=== PATIENT | male | born 1975 | race Caucasian/White ===

== ENCOUNTER 2017-12-05 10:35 | Emergency (ER) | payer SELFPAY ==
--- NOTE | 2017-12-05 10:46 | UC ---
Laceration HPI - HPI Summary HPI Summary: 42 yo WM presents with laceration to right index finger pad. 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 He applied a bandage and came to urgent care. Last tetanus was 2 or 3 years ago he says. - History Of Current Complaint Stated Complaint: FINGER LAC Time Seen by Provider: 12/05/17 10:46 Hx Obtained From: Patient Laceration Location: Finger Mechanism Of Injury: Sharp Trauma Onset/Duration: Sudden Onset Severity: Mild Pain Intensity: 2 Pain Scale Used: 0-10 Numeric - Allergies/Home Medications Allergies/Adverse Reactions: Allergies Allergy/AdvReac Type Severity Reaction Status Date / Time NSAIDS (Non-Steroidal AdvReac Mild Rash Verified 12/05/17 10:55 Anti-Inflamma horses Allergy Severe sob, Uncoded 06/07/13 19:53 angioedema PMH/Surg Hx/FS Hx/Imm Hx Previously Healthy: Yes Respiratory History: Asthma - Surgical History Surgical History: Yes Surgery Procedure, Year, and Place: Nasal polyp. appendectomy - Family History Known Family History: Negative: Cardiac Disease, Hypertension - Social History Occupation: Employed Full-time Lives: With Family Alcohol Use: Weekly Alcohol Amount: liquor Substance Use Type: None Smoking Status (MU): Current Some Day Smoker Type: Cigars Amount Used/How Often: min. x 4 years Have You Smoked in the Last Year: Yes Review of Systems Constitutional: Negative Skin: Other - Laceration right index finger pad Respiratory: Negative Cardiovascular: Negative Neurovascular: Negative Musculoskeletal: Negative Neurological: Negative Psychological: Negative All Other Systems Reviewed And Are Negative: Yes Physical Exam - Summary Physical Exam Summary: GENERAL: NAD. WDWN. No pain distress. SKIN: 5mm superficial linear laceration to right index finger pad. Well approximated. Bleeding stopped with direct pressure. No tendon involvement or subcutaneous tissue exposure. NECK: Supple. Nontender. No lymphadenopathy. CHEST: CTAB. No r/r/w. Breathing comfortably and in no distress. CV: RRR. Without m/r/g. Brisk cap refill. MSK: Right finger Strength 5/5. FROM. No edema NEURO: Alert. Sensations intact PSYCH: Age appropriate behavior. Triage Information Reviewed: Yes Laceration Repair - Laceration Repair 1 Description: Linear Laceration Size After Repair: Length (cm) - 0.5 Modified For Repair: No Cleansing Completed Via Routine Prep: Yes Closure Material: Skin Adhesive Laceration Course/Dx - Course/Dx Course Of Treatment: Wound was irrigated with 50mL NS. Closed with dermabond and telfa dressing placed. - Differential Dx - Laceration/Wound Provider Diagnoses: Laceration 5mm right index finger pad Discharge - Sign-Out/Discharge Documenting (check all that apply): Discharge - Discharge Plan Condition: Stable Disposition: HOME Patient Education Materials: Laceration (ED), Skin Adhesive Care (ED) Referrals: Caroline Ibrahim MD [Primary Care Provider] - Additional Instructions: If you develop a fever, shortness of breath, chest pain, new or worsening symptoms - please call your PCP or go to the ED. Your blood pressure was high at todays visit. Please see your primary provider within 4 weeks for recheck and re-evaluation. - Billing Disposition and Condition Condition: STABLE Disposition: HOME
[2017-12-05 10:55] VITALS: BP 139/83
== END 2017-12-05 11:11 | disposition home or self-care (01) ==
LOC: UCEAST 10:35
DX: S61.210A Laceration without foreign body of right index finger without damage to nail, initial encounter (principal); W45.8XXA Other foreign body or object entering through skin, initial encounter; Y93.9 Activity, unspecified; Y92.9 Unspecified place or not applicable; J45.909 Unspecified asthma, uncomplicated; Z88.6 Allergy status to analgesic agent; Z72.0 Tobacco use
CPT/HCPCS: 12001; 99211; G0463

== ENCOUNTER 2019-08-06 12:09 | Emergency (ER) | payer SELFPAY ==
[2019-08-06 13:01] VITALS: BP 119/79
--- NOTE | 2019-08-06 13:22 | UC ---
Laceration HPI - HPI Summary HPI Summary: 44 yo male presents with right thumb laceration. He tells me that just [employer] he was using a metal circuit board printer and it slipped and he sustained a laceration to his right thumb. Bandaged and came to . He states he is UTD on tetanus. - History Of Current Complaint Chief Complaint: UCLaceration Stated Complaint: THUMB INJURY AT WORK Time Seen by Provider: 08/06/19 13:21 Laceration Location: Finger Mechanism Of Injury: Sharp Trauma Onset/Duration: Sudden Onset Severity: Mild Pain Intensity: 1 Pain Scale Used: 0-10 Numeric - Allergies/Home Medications Allergies/Adverse Reactions: Allergies Allergy/AdvReac Type Severity Reaction Status Date / Time NSAIDS (Non-Steroidal AdvReac Mild Rash Verified 08/06/19 12:55 Anti-Inflamma horses Allergy Severe sob, Uncoded 08/06/19 12:55 angioedema PMH/Surg Hx/FS Hx/Imm Hx Respiratory History: Asthma - Surgical History Surgical History: Yes Surgery Procedure, Year, and Place: Nasal polyp. appendectomy - Family History Known Family History: Negative: Cardiac Disease, Hypertension - Social History Occupation: Employed Full-time Lives: With Family Alcohol Use: None Alcohol Amount: liquor Substance Use Type: None Smoking Status (MU): Current Some Day Smoker Type: Cigars Amount Used/How Often: min. x 4 years Have You Smoked in the Last Year: Yes - Immunization History Most Recent Tetanus Shot: 2 years Review of Systems All Other Systems Reviewed And Are Negative: No Constitutional: Positive: Negative Skin: Positive: Other - Right thumb laceration Respiratory: Positive: Negative Cardiovascular: Positive: Negative Neurological: Positive: Negative Psychological: Positive: Negative Physical Exam - Summary Physical Exam Summary: GENERAL: NAD. WDWN. No pain distress. SKIN: RIGHT THUMB: radial aspect from nail to mid finger pain with 1.5cm linear laceration with 3mm width mild active bleeding. No bony or tendon involvement. CHEST: No accessory muscle use. Breathing comfortably and in no distress. CV: Pulses intact radial and ulnar. Cap refill <2seconds NEURO: Alert. Sensations intact hand and all fingers. PSYCH: Age appropriate behavior. Triage Information Reviewed: Yes Vital Signs: Initial Vital Signs Temp 98.2 F 08/06/19 12:56 Pulse 63 08/06/19 12:56 Resp 16 08/06/19 12:56 BP 119/79 12/11/19 12:56 Pulse Ox 96 08/06/19 12:56 Vital Signs Reviewed: Yes Laceration Repair - Laceration Repair 1 Description: Linear Laceration Size After Repair: Length (cm) - 1.5 Anesthesia Used: 2.0% Lido Irrigation With Pressure Irrigation Device: Yes Closure Material: Sutures - #5 Closure Method: Single Layer Suture Of: Skin Suture Type: Prolene - 5-0 Laceration Course/Dx - Course/Dx Course Of Treatment: The procedure was explained to the pt and all questions were answered. A time out was performed, witnessed, and signed. The area was irrigated with 200mL sterile saline. 1mL of 2% lidocaine without epi was administered and good anesthetization was achieved. In the usual sterile fashion, FIVE 5-0 prolene interrupted sutures were placed. Homeostasis achieved. The wound was bandaged with tubgauze . Pt tolerated procedure well. - Diagnosis Provider Diagnosis: Thumb laceration Discharge ED - Sign-Out/Discharge Documenting (check all that apply): Patient Departure All imaging exams completed and their final reports reviewed: No Studies - Discharge Plan Condition: Stable Disposition: HOME Patient Education Materials: Care For Your Stitches (ED), Laceration (ED) Referrals: No Primary Care Phys,NOPCP [Primary Care Provider] - Additional Instructions: 1) Please keep the area bandage, clean, dry, and intact for the next 24- 48hours. Then change the bandage daily until sutures are removed. 2) If you develop a fever, colored or thick discharge, increased pain or swelling - please call your PCP or return for a wound check. 3) Please return in 10-12 days to have your FIVE sutures removed. - Billing Disposition and Condition Condition: STABLE Disposition: Home - Attestation Statements Provider Attestation: I was available for consult. This patient was seen by the MICHAEL. The patient was not presented to, seen by, or examined by me. -Hussein
[2019-08-06] MEDS ORDERED: Lidocaine 2% PF * 5 ML VIAL INJ ONE (13:30)
== END 2019-08-06 14:24 | disposition home or self-care (01) ==
LOC: UCEAST 12:09
DX: S61.011A Laceration without foreign body of right thumb without damage to nail, initial encounter (principal); J45.909 Unspecified asthma, uncomplicated; F17.210 Nicotine dependence, cigarettes, uncomplicated; Z88.6 Allergy status to analgesic agent; Z91.09 Other allergy status, other than to drugs and biological substances; W45.8XXA Other foreign body or object entering through skin, initial encounter; Y92.9 Unspecified place or not applicable
CPT/HCPCS: 12001; 99212; G0463